=== PATIENT | male | born 1980 | race Hispanic/Latino ===

== ENCOUNTER 2022-07-28 16:25 | Emergency (ER) | payer SELFPAY ==
[2022-07-28 16:34] VITALS: BP 115/56; PULSE 89; RESP 20; TEMP 36.5; O2SAT 99
--- NOTE | 2022-07-28 17:53 | ED.BACK ---
HPI - Back Pain/Injury General Chief Complaint: Back Pain/Injury Stated Complaint: L sided flank pain Time Seen by Provider: 07/28/22 16:39 History of Present Illness HPI Narrative: 42-year-old male presented emergency department for evaluation of low back pain, headache and bruising. Patient had persistent for approximately 1 month. Patient attributed these to his COVID that he had in 2019 at his COVID-vaccine at 2020. Related Data Home Medications Medication Instructions Recorded Confirmed No Home Medications 07/28/22 07/28/22 Allergies Allergy/AdvReac Type Severity Reaction Status Date / Time No Known Allergies Allergy Verified 07/28/22 17:38 Review of Systems Review of Systems: CONSTITUTIONAL: Body aches and fatigue with subjective fever EYES: Denies visual changes, redness, or discharge. ENT: Denies rhinorrhea, congestion, sore throat, or otalgia. CARDIOVASCULAR: Denies chest pain, palpitations, or edema. RESPIRATORY: Denies cough or dyspnea. GASTROINTESTINAL: Denies abdominal pain, nausea, vomiting, or diarrhea. GENITOURINARY: Denies dysuria or hematuria. SKIN: Denies rash or itching. MUSCULOSKELETAL: Diffuse lower back pain NEUROLOGIC: Denies headache, numbness, or weakness. Exam Narrative: APPEARANCE: Well appearing, no pain, no distress, well-nourished. HEAD: normocephalic, atraumatic. EYES: PERRLA/EOMI, conjunctivae clear. NOSE: Normal no drainage EARS:TMS clear with good light reflex. THROAT: Pharynx clear, no exudate. NECK: Supple. No adenopathy, no masses. RESPIRATORY: Airway patent, respirations nonlabored. Clear to auscultation bilaterally, no rales, rhonchi, wheezing. CARDIOVASCULAR: Regular rate and rhythm without murmurs rubs or gallops. ABDOMINAL: Soft, nontender, nondistended, normal bowel sounds MUSCULOSKELETAL: Moves all extremities. Strength/ROM intact, No edema, No calf tenderness. NEURO: Alert. Cranial nerves II through XII intact. Grossly intact SKIN: Warm, dry. Normal Color Course Course Emergency Course: Patient was updated on results of his work-up. Patient did test positive for COVID. All questions and concerns were addressed. Vital Signs Vital signs: Vital Signs Temperature 97.7 F 07/28/22 16:34 Pulse Rate 89 07/28/22 16:34 Respiratory Rate 20 12/06/22 16:34 Blood Pressure 115/56 L 07/28/22 16:34 Pulse Oximetry 99 07/28/22 16:34 Oxygen Delivery Room Air 07/28/22 16:34 Temperature 97.7 F 07/28/22 16:34 Pulse Rate 89 07/28/22 16:34 Respiratory Rate 20 07/28/22 16:34 Blood Pressure 115/56 L 07/28/22 16:34 Pulse Oximetry 99 07/28/22 16:34 Oxygen Delivery Room Air 07/28/22 16:34 MDM - Back Pain/Injury Lab Data 07/28/22 18:00 07/28/22 18:00 Labs: Lab Results 07/28/22 07/28/22 07/28/22 Range/Units 18:00 18:00 18:00 WBC 5.9 (4.5-10.0) K/mm3 RBC 4.88 (4.6-6.20) M/mm3 Hgb 16.3 (14.0-18.0) g/dL Hct 46.5 (42.0-52.0) % MCV 95.3 (80-100) fl MCH 33.4 (26-34) pg MCHC 35.1 (32-36) g/dl RDW 12.6 (11.5-14.5) % Plt Count 321 (150-375) k/mm3 MPV 9.5 (7.4-10.4) fl Immature Gran % (Auto) 0.2 (0-0.5) % Neut % (Auto) 59.5 (45.5-73.1) % Lymph % (Auto) 29.1 (18.3-44.2) % [place] % (Auto) 6.6 (2.6-8.5) % Eos % (Auto) 4.1 (0-4.4) % Baso % (Auto) 0.5 (0.2-1.2) % Lymph # (Auto) 1.71 (0.9-3.2) K/mm3 [place] # (Auto) 0.4 (0.1-0.6) K/mm3 Eos # (Auto) 0.2 (0-0.3) K/mm3 Baso # (Auto) 0.0 (0.0-0.1) K/mm3 Abs Immat Gran (auto) 0.01 (0.00-0.031) K/mm3 Absolute Neuts (auto) 3.5 (1.3-6.7) K/mm3 Absolute Nucleated RBC 0.0 (0.0-0.012) K/mm3 Nucleated RBC % 0.0 (0.0-0.2) % PT 12.3 (11.1-14.7) Seconds INR 1.0 APTT 27.3 (22.3-36.8) SECONDS Sodium (137-145) mmol/L Potassium (3.4-5.0) mmol/L Chloride (98-107) mmol/L Carbon Dioxide (22-30) mmol/L Anion Gap (8-16) mmol/L
[2022-07-28 18:06] LABS: Basophils Percent Auto 0.5 % (0.2-1.2); Eosinophils Absolute Auto 0.2 K/mm3 (0-0.3); Eosinophils Percent Auto 4.1 % (0-4.4); Hematocrit 46.5 % (42.0-52.0); Hemoglobin 16.3 g/dL (14.0-18.0); Immature Granulocyte Absolute 0.01 K/mm3 (0.00-0.031); Immature Granulocyte Percent A 0.2 % (0-0.5); Lymphocytes Absolute Auto 1.71 K/mm3 (0.9-3.2); Lymphocytes Percent Auto 29.1 % (18.3-44.2); Mean Corpuscular HGB Conc 35.1 g/dl (32-36); Mean Corpuscular Hemoglobin 33.4 pg (26-34); Mean Corpuscular Volume 95.3 fl (80-100); Mean Platelet Volume 9.5 fl (7.4-10.4); Monocytes Absolute Auto 0.4 K/mm3 (0.1-0.6); Monocytes Percent Auto 6.6 % (2.6-8.5); Neutrophils Absolute Auto 3.5 K/mm3 (1.3-6.7); Neutrophils Percent Auto 59.5 % (45.5-73.1); Platelet Count Result 321 k/mm3 (150-375); Red Blood Count 4.88 M/mm3 (4.6-6.20); Red Cell Distribution Width 12.6 % (11.5-14.5); White Blood Count 5.9 K/mm3 (4.5-10.0)
[2022-07-28 18:16] LABS: Prothrombin Time 12.3 Seconds (11.1-14.7)
[2022-07-28 18:17] LABS: Alanine Aminotransferase 74 U/L (6-50); Albumin Level 4.5 g/dL (3.5-5.1); Alkaline Phosphatase 110 U/L (38-126); Anion Gap 6 mmol/L (8-16); Aspartate Amino Transferase 40 U/L (17-59); Bilirubin,Total 0.3 mg/dL (0.2-1.3); Blood Urea Nitrogen 14 mg/dL (9-20); Calcium 8.8 mg/dL (8.4-10.2); Carbon Dioxide 26 mmol/L (22-30); Chloride 105 mmol/L (98-107); Estimated CRCL calculation 82 ml/min; Estimated Glomerular Filt Rate > 60; Glucose 121 mg/dL (65-110); Partial Thromboplastin Time 27.3 SECONDS (22.3-36.8); Sodium 137 mmol/L (137-145)
[2022-07-28 18:41] LABS: Influenza A QL RT-PCR Negative (Negative); Influenza B QL RT-PCR Negative (Negative); SARS-CoV-2 RNA PCR Positive
== END 2022-07-28 19:20 | disposition home or self-care (01) ==
PROVIDERS: Emergency Provider Emergency Medicine
DX: U07.1 COVID-19 (principal); Z86.16 Personal history of COVID-19
CPT/HCPCS: 36415; 80053; 85025; 85610; 85730; 87636; 99283

== ENCOUNTER 2023-07-02 09:25 | Emergency (ER) | payer SELFPAY ==
--- NOTE | ~2023-07-02 | XR_ITS ---
Clinical Indication: Cough PA and lateral views of the chest: Comparison: None Findings: The lungs are clear, without evidence of focal consolidation or pleural effusion. Cardiome diastinal silhouette is within normal limits. Bones and soft tissues are unremarkable. Impression: Normal chest. Reviewed, dictated and finalized at location . [employer] Impression: Normal chest.
--- NOTE | 2023-07-02 09:49 | ED.URI ---
HPI - URI/Sore Throat General Chief Complaint: Upper Respiratory Infection <Mandi Evans PA-C - Last Filed: 07/02/23 11:25> Stated Complaint: congestion <LEEANNA Altman Last Filed: 07/02/23 11:25> Time Seen by Provider: 07/02/23 09:36 <Mandi Evans PA-C - Last Filed: 07/02/23 11:25> History of Present Illness HPI Narrative: 43-year-old Libyan-speaking male reports for evaluation for nasal congestion, productive cough and a sore throat x1 month. Pt states his cough is productive with white sputum and states he is 100% congested in his nares. He reports pain in his sinuses and intermittent sinus headaches. States he takes Claritin daily without relief. He denies fever, nausea vomiting or diarrhea, otalgia, chest pain or shortness of breath, abdominal pain. He denies known sick contacts. <LEEANNA Altman Last Filed: 07/02/23 11:25> Related Data Allergies/Adverse Reactions: Allergies Allergy/AdvReac Type Severity Reaction Status Date / Time No Known Allergies Allergy Verified 07/28/22 17:38 <LEEANNA Altman Last Filed: 07/02/23 11:25> Review of Systems Review of Systems: CONSTITUTIONAL: Denies fever, chills EYES: Denies visual changes, redness, or discharge. ENT: See HPI CARDIOVASCULAR: Denies chest pain, palpitations, or edema. RESPIRATORY: Denies cough or dyspnea. GASTROINTESTINAL: Denies abdominal pain, nausea, vomiting, or diarrhea. GENITOURINARY: Denies dysuria or hematuria. SKIN: Denies rash or itching. MUSCULOSKELETAL: Denies back pain, joint pain, or myalgia. NEUROLOGIC: Denies headache, numbness, dizziness, or weakness. PSYCHIATRIC: Denies anxiety or depression. <Mandi Evans PA-C - Last Filed: 07/02/23 11:25> Exam Narrative: GENERAL: Well-appearing, in no acute distress. Patient resting comfortably in exam bed. He is pleasant and conversational HEAD: Normocephalic EYES: PERRLA, EOMI ENT: Nares with congested mucous membranes. Mucous membranes moist. Oropharynx without tonsillar hypertrophy exudate or other lesions. Mild amount of erythema to posterior pharynx. Uvula is midline. Bilateral TMs are [place] nonbulging. Normal canals. NECK: Supple. CHEST: No respiratory distress. Clear to auscultation, no adventitious breath sounds. HEART: Regular rate and rhythm. No murmur heard. Normal peripheral pulses. ABDOMEN: Soft, nontender, normal active bowel sounds. EXTREMITIES: Normal range of motion. No edema. SKIN: Warm, dry, no rash. NEURO: No focal deficits. Alert and oriented x3. PSYCH: Normal mood and affect. <Mandi Evans PA-C - Last Filed: 07/02/23 11:25> Course [employer]/PA Physician Supervision I agree with midlevel documentation; I performed the medical decision making component of this evaluation. <Kika Mckeon MD - Last Filed: 07/02/23 18:13> Vital Signs Vital signs: Vital Signs Temperature 97.5 F L 07/02/23 09:56 Pulse Rate 99 07/02/23 09:56 Respiratory Rate 18 07/02/23 09:56 Blood Pressure 153/67 H 07/02/23 09:56 Pulse Oximetry 100 07/02/23 09:56 Oxygen Delivery Room Air 07/02/23 09:56 Temperature 97.5 F L 07/02/23 09:56 Pulse Rate 99 07/02/23 09:56 Respiratory Rate 18 07/02/23 09:56 Blood Pressure 153/67 H 07/02/23 09:56 Pulse Oximetry 100 07/02/23 11:07 Oxygen Delivery Room Air 07/02/23 11:07 <Mandi Evans PA-C - Last Filed: 07/02/23 11:25> Vital Signs Temperature 97.5 F L 07/02/23 09:56 Pulse Rate 99 07/02/23 09:56 Respiratory Rate 18 07/02/23 09:56 Blood Pressure 153/67 H 07/02/23 09:56 Pulse Oximetry 100 07/02/23 09:56 Oxygen Delivery Room Air 07/02/23 09:56 Temperature 97.5 F L 07/02/23 09:56 Pulse Rate 99 07/02/23 09:56 Respiratory Rate 18 07/02/23 09:56 Blood Pressure 153/67 H 07/02/23 09:56 Pulse Oximetry 100 07/02/23 11:07 Oxygen Delivery Room Air 07/02/23 11:07 <Kika Mckeon MD -
[2023-07-02 09:56] VITALS: BP 153/67; PULSE 99; RESP 18; TEMP 36.4; O2SAT 100
[2023-07-02 10:41] LABS: Strep Group A RT-PCR NOT DETECTED (Negative)
[2023-07-02 10:51] LABS: Influenza A QL RT-PCR Negative (Negative); Influenza B QL RT-PCR Negative (Negative); SARS-CoV-2 RNA PCR Negative (Negative)
[2023-07-02 11:07] VITALS: O2SAT 100
== END 2023-07-02 11:38 | disposition home or self-care (01) ==
PROVIDERS: Emergency Provider Physician Assistant
DX: J01.00 Acute maxillary sinusitis, unspecified (principal); J40 Bronchitis, not specified as acute or chronic; Z20.822 Contact with and (suspected) exposure to COVID-19
CPT/HCPCS: 71046; 87636; 87651; 99283

== ENCOUNTER 2025-08-01 09:41 | Emergency (ER) | payer SELFPAY ==
--- NOTE | ~2025-08-01 | XR_ITS ---
EXAMINATION: XR chest 2V DATE: 08/01/2025 11:21 INDICATION: Body chills TECHNIQUE: Frontal and lateral views of the chest were obtained. COMPARISON: None. FINDINGS: No focal consolidation effusion. No definite lymphadenopathy. Heart size normal. Bones and upper abdomen unremarkable. IMPRESSION: 1. No focal acute process. Reviewed, dictated and finalized at location A. RO[employer] AGENT IMPRESSION: 1. No focal acute process.
[2025-08-01 09:49] VITALS: BP 136/78; PULSE 82; RESP 16; TEMP 37; O2SAT 99
--- NOTE | 2025-08-01 11:00 | ED_ITS ---
HPI - URI/Sore Throat General Chief Complaint: Upper Respiratory Infection Stated Complaint: nasal congestion Time Seen by Provider: 08/01/25 09:58 Source: patient Mode of arrival: ambulatory Limitations: no limitations History of Present Illness HPI Narrative: Patient is a 45-year-old male who presents to the ED with report of URI symptoms. Patient is primarily Lebanese-speaking. [employer] bpm architect was utilized for assistance with translation. Patient reports having nasal/facial congestion, sinus pressure, headaches for the past 1 month. States the congestion causes him difficulty breathing through his nose. Denies shortness of breath. Denies fevers. Denies cough. Has been using different teas for his sx's w/o relief. Has not taken any medications for his sx's. Related Data Allergies Allergy/AdvReac Type Severity Reaction Status Date / Time No Known Allergies Allergy Verified 08/01/25 09:45 Review of Systems Review of Systems: All systems reviewed & are unremarkable except as noted in HPI. All systems reviewed & are unremarkable except as noted in HPI and below Exam Narrative: GENERAL: Well appearing, obese with BMI 31.7, non-toxic, in no acute distress. HEAD: Normocephalic, atraumatic. ENT: Nasal quality to voice. Redness over external nose. No active drainage/epistaxis RESPIRATORY: Airway patent, respirations nonlabored. Clear to auscultation bilaterally, no rales, rhonchi, wheezing. No focal lung sounds CARDIOVASCULAR: Regular rate and rhythm without murmurs, rubs, or gallops. MUSCULOSKELETAL: Moves all extremities. No gross deformities. SKIN: Warm, dry, normal color. NEURO: A&O X3. Speech clear. PSYCHIATRIC: Appropriate mood and affect. Normal interaction. Course Vital Signs Vital signs: Vital Signs Temperature 98.6 F 08/01/25 09:49 Pulse Rate 82 08/01/25 09:49 Respiratory Rate 16 08/01/25 09:49 Blood Pressure 136/78 08/01/25 09:49 Pulse Oximetry 99 08/01/25 09:49 Oxygen Delivery Room Air 08/01/25 09:49 Temperature 98.6 F 08/01/25 09:49 Pulse Rate 82 08/01/25 09:49 Respiratory Rate 16 08/01/25 09:49 Blood Pressure 136/78 08/01/25 09:49 Pulse Oximetry 99 08/01/25 09:49 Oxygen Delivery Room Air 08/01/25 09:49 [facility] Narrative Medical decision making narrative: Patient presented to ED with 1 month history of significant nasal congestion, sinus pressure/drainage. Vital signs stable upon arrival. Patient in no acute distress. Oxygen stable on room air. Denying shortness of breath. Viral swabs negative. Chest x-ray is clear, no focal findings. Given prolonged nature of sx's (>2weeks), will treat for acute bacterial sinusitis with augmentin. Will also prescribe Flonase. Discussed additional aeoh-lhf-[id number] therapies to try including nasal decongestants, Tylenol/ibuprofen. Recommended follow-up with PCP. Strict ED return precautions discussed. Patient in agreement with plan. Discharged in stable condition. No signs of systemic infection to suggest need for further labs or imaging at this time. Differential Diagnosis Differential Diagnosis: COVID, influenza, RSV, viral URI, rhinosinusitis Medical Records I have reviewed the following patient records and this information was taken into consideration when formulating the assessment and plan.: previous labs, previous ER visits, previous hospitalizations and previous clinic visits Lab Data [facility] Lab Attestation statement: I personally reviewed the patient's lab results. Labs: Lab Results 08/01/25 08/01/25 Range/Units 10:31 11:51 POC Capillary Glucose 132 H (65-105) mg/dl Influenza A (RT-PCR) Negative (Negative) Influenza B (RT-PCR) Negative (Negative) RSV (RT-PCR) Negative (Negative) SARS-CoV-2 RNA (RT-PCR) Negative (Negative) Imaging Data Attestation: I personally reviewed and interpreted this imaging study as follows: Radiologist's impression: ITS Impressions Chest X-Ray 08/01/25 11:33 IMPRESSION: 1. No focal acute process. Discharge Plan Discharge Clinical Impression: Acute rhinosinusitis Patient Disposition: Home Condition: Stable Instructions: Antibiotic Form, Sinusitis (ED), Cold Symptoms (ED) Additional Instructions: Take antibiotics as prescribed. Use Flonase as prescribed. Stay well-hydrated at home. Recommend [id number] Tylenol and Ibuprofen for discomfort and/or headaches. Recommend [id number] cough and cold medicines for additional symptom relief: Delsym, Mucinex, DayQuil, NyQuil, Sudafed, Robitussin, TheraFlu. Follow with primary care doctor upon resolution of symptoms. Return to the ED if you experience worsening or severe symptoms, chest pain, difficulty breathing, unable to keep down food or drink, severe pain, or any other symptoms of concern. Patient Language: Lebanese Prescriptions: New amoxicillin-pot clavulanate 875-125 mg tablet 1 tablet PO Q12H 7 Days Qty: 14 0RF fluticasone propionate [24 Hour Allergy Relief] 50 mcg/actuation spray,suspension 2 spray intranasal DAILY Qty: 16 0RF Rx Instructions: administer into each nostril No Action fluticasone propionate [Flonase Allergy Relief] 50 mcg/actuation spray,suspension 1 spray intranasal Q12H Qty: 16 0RF Rx Instructions: administer into each nostril amoxicillin-pot clavulanate 875-125 mg tablet 1 tablet PO Q12H Qty: 14 0RF Follow-up/Referrals: PHYSICIAN,DIGITAL PHOTO PRINTER [Primary Care Provider, Internal Medicine] Dash Mota MD [Physician, Family Practice] Time of Disposition: 11:07
[2025-08-01 11:13] LABS: Influenza A QL RT-PCR Negative (Negative); Influenza B QL RT-PCR Negative (Negative); RSV RNA, RT-PCR Negative (Negative); SARS-CoV-2 RNA PCR Negative (Negative)
== END 2025-08-01 12:02 | disposition home or self-care (01) ==
PROVIDERS: Emergency Provider Physician Assistant
DX: J01.90 Acute sinusitis, unspecified (principal); Z20.822 Contact with and (suspected) exposure to COVID-19
CPT/HCPCS: 71046; 82948; 87637; 99283